=== PATIENT | female | born 1990 | race Caucasian/White ===

== ENCOUNTER 2020-09-19 01:40 | Emergency (ER) | payer OTHER ==
[2020-09-19 02:11] VITALS: BP 118/74; PULSE 79; TEMP 97.9; BMI 32.4
[2020-09-19 02:47] LABS: BASO % 0.5 % (0-2.0); EOS % 0.3 % (0-4.5); HEMATOCRIT 36.1 % (32.4-45.2); HEMOGLOBIN 12.1 GM/dL (10.7-15.3); LYMPH % 20.8 % (8-40); MCH 28.9 pg (25.7-33.7); MCHC 33.5 g/dl (32.0-36.0); MEAN CELL VOLUME 86.3 fl (80-96); MEAN PLT VOLUME 7.9 fl (7.5-11.1); MONO % 3.7 % (3.8-10.2); NEUT % 74.7 % (42.8-82.8); PLATELET COUNT 380 K/MM3 (134-434); RBC 4.18 M/mm3 (3.60-5.2); RDW 14.8 % (11.6-15.6); WHITE BLOOD COUNT 11.6 K/mm3 (4.0-10.0)
[2020-09-19 04:13] LABS: EPI CELLS 9 /uL (0-25.1); HYALINE CASTS 10 /uL (0-3.1); URINE APPEARANCE CLEAR; URINE BACTERIA 679 /uL (0-1359); URINE BILIRUBIN NEGATIVE (NEGATIVE); URINE COLOR YELLOW; URINE GLUCOSE (UA) NEGATIVE (NEGATIVE); URINE KETONE NEGATIVE (NEGATIVE); URINE LEUK ESTERASE NEGATIVE (NEGATIVE); URINE NITRITE NEGATIVE (NEGATIVE); URINE PROTEIN TRACE (NEGATIVE); URINE RBC 25 /uL (0-23.9)
== END 2020-09-19 03:58 | disposition home or self-care (01) ==
LOC: JER 01:40
DX: O20.0 Threatened abortion (principal)
CPT/HCPCS: 36415; 76817-TC; 81003; 84702; 85025; 86850; 86900; 86901; 87086; 99284-25